=== PATIENT | female | born 1960 | race Caucasian/White ===

== ENCOUNTER 2021-10-09 04:14 | Emergency (ER) | payer OTHER ==
[2021-10-09] MEDS ORDERED: Sodium Chloride 0.9% 10 ML Syringe FLUSH PRN ×2 (04:28→05:51)
[2021-10-09] MEDS ORDERED: Sodium Chloride 0.9% 500 ML IV ONE ×2 (04:28→05:18)
[2021-10-09] MEDS ORDERED: HYDROmorphone 0.5 MG/0.5 ML Syringe IVPUSH ONE ×2 (04:29→05:18)
[2021-10-09] MEDS ORDERED: HYDROmorphone 0.5 MG/0.5 ML Syringe ONE (04:31)
[2021-10-09] MEDS ORDERED: Ondansetron 4 MG/2 ML SDV IVPUSH ONE (04:38)
[2021-10-09] MEDS ORDERED: Ondansetron 4 MG/2 ML SDV ONE (04:40)
[2021-10-09 05:02] LABS: ESTIMATED GFR 57 mL/min (>60)
[2021-10-09] MEDS ORDERED: Methocarbamol 500 MG Tab PO ONE (05:14)
[2021-10-09] MEDS ORDERED: Sodium Chloride 0.9% 100 ML IV SCH (06:00)
[2021-10-09] MEDS ORDERED: Iopamidol 755 Mg/ML 100 ML Bottle IV SCH (06:00)
[2021-10-09 06:57] VITALS: BP 90/43; PULSE 81
== END 2021-10-09 06:57 | disposition home or self-care (01) ==
LOC: JP.ED 04:14
DX: S39.012A Strain of muscle, fascia and tendon of lower back, initial encounter (principal); Z79.82 Long term (current) use of aspirin; Z79.899 Other long term (current) drug therapy; X50.0XXA Overexertion from strenuous movement or load, initial encounter; Y93.23 Activity, snow (alpine) (downhill) skiing, snowboarding, sledding, tobogganing and snow tubing
CPT/HCPCS: 36415; 70450; 70496; 70498; 72100; 80053; 84484; 85025; 85610; 85730; 93005; 96361; 96374; 96375; 99284; A9270; J1170; J2405; J3490; J7040; Q9967; 93010; 99283